=== PATIENT | female | born 1965 | race Caucasian/White ===

== ENCOUNTER 2017-08-04 09:07 | Outpatient (CLI) | payer OTHER ==
--- NOTE | 2017-08-04 11:56 | MMO ---
BILATERAL SCREENING MAMMOGRAM: DATE: 08/04/17 HISTORY: 52-year-old female for screening mammography. COMPARISON: 04/15/15, 03/27/13, 12/30/10. FINDINGS: Bilateral MLO and CC views of the breasts show scattered fibroglandular breast tissue. The breasts ar e smaller than the prior mammograms. There is increased density associated with dystrophic type calci fications in the inferior aspect of both breasts, likely secondary to the patient's prior reduction m ammoplasty/mastopexy. There is no evidence of suspicious cluster of microcalcifications or suspicious solid mass. Interpretation of this mammogram was performed with the assistance of computer-aided detection. IMPRESSION: BIRADS 2: Benign Finding(s) Annual screening mammography is recommended. POS: HO
== END 2017-08-04 09:08 | disposition home or self-care (01) ==
LOC: SCSMAMMO 09:07
PROVIDERS: ATTEND Family Medicine
DX: Z12.31 Encounter for screening mammogram for malignant neoplasm of breast (principal)
CPT/HCPCS: 77067

== ENCOUNTER 2017-12-01 06:16 | Day surgery (SDC) | payer OTHER ==
--- NOTE | 2017-11-30 08:32 | HP ---
HISTORY OF PRESENT ILLNESS: The patient is a 52-year-old inmate at the [facility] in [place] who has a several month history of problems with both hands, right greater than left. She has pain a nd tingling in the median nerve distribution which is persistent despite rest, restriction of activit ies, splinting and anti-inflammatory medications. She also has had triggering in both thumbs and als o her left middle finger which had persisted despite rest and conservative treatment. Her right hand bothers her the most. PAST MEDICAL HISTORY: The patient is otherwise in good health. CURRENT MEDICATIONS: Normally takes no routine medications. ALLERGIES: She has no known allergies. FAMILY HISTORY/SOCIAL HISTORY/REVIEW OF SYSTEMS: Otherwise unremarkable. PHYSICAL EXAMINATION: GENERAL: Reveals a healthy female. HEENT: Unremarkable. NECK: Supple. CHEST: Clear. HEART: Regular rate and rhythm. ABDOMEN: Soft, nontender. PELVIC/RECTAL/BREAST: Exams are deferred. EXTREMITIES: Pertinent findings are related to both hands and wrists. On the right side, there is n o swelling or atrophy. There is a negative Tinel sign and positive Phalen's test. No focal neurolog ic deficit. There is tenderness over the A1 jeremy of the right thumb with slight triggering. There are good distal pulses, good capillary refill. Examination of the left hand and wrist reveals no sw elling or atrophy. There is a negative Tinel sign and positive Phalen's test. There is no focal vivian rologic deficit. There is good capillary refill. Motor exam is intact. There is tenderness over th e A1 jeremy of the left thumb and left middle finger with slight triggering. Nerve conduction test r eveal moderately severe bilateral carpal tunnel syndrome. IMPRESSION: 1. Bilateral carpal tunnel syndrome, right greater than left. 2. Trigger thumb, right thumb. 3. Trigger thumb, left hand. 4. Trigger finger, left middle finger. PLAN: Endoscopic possible open right carpal tunnel release and open right trigger thumb release. Ijeoma dalton will require a staged procedure on the left side for trigger thumb release and carpal tunnel releas e when she has recovered from the right side. The nature of the surgery, length of recovery, and pot ential complications such as infection, loss of motion, incomplete relief, nerve injury, recurrence, and need for additional treatment or repeat surgery have been discussed in detail.
[2017-11-30 14:27] VITALS: BMI 30.3
[2017-12-01] MEDS ORDERED: Lidocaine 1% (PF) 30 ML VIAL ONE (06:46)
[2017-12-01] MEDS ORDERED: Bupivacaine PF 0.5% 30 ML VIAL ONE (06:46)
[2017-12-01] MEDS ORDERED: CEFAZOLIN/Water 2 GM/20 ML SYRINGE ONE (07:20)
[2017-12-01] MEDS ORDERED: Fentanyl 100 MCG/2 ML VIAL ONE ×2 (07:42→08:30)
[2017-12-01] MEDS ORDERED: Meperidine HCl/PF 25 MG/ML VIAL ONE (08:33)
--- NOTE | 2017-12-01 08:47 | OP ---
DATE OF PROCEDURE: 12/01/2017 SURGEON: George Alegria M.D. ANESTHESIA: General. PREOPERATIVE DIAGNOSES: 1. Right carpal tunnel syndrome. 2. Right trigger thumb. POSTOPERATIVE DIAGNOSES: 1. Right carpal tunnel syndrome. 2. Right trigger thumb. PROCEDURES PERFORMED: 1. Right endoscopic carpal tunnel release. 2. Right trigger thumb release. NARRATIVE REPORT: After satisfactory anesthesia was induced in the supine position, the patient was prepped and draped in routine manner. The right arm was elevated, exsanguinated with an Esmarch band age, and the tourniquet inflated to 250 mmHg. The thumb was addressed first. A 2 cm transverse inci guillermina was made over the base of the thumb over the palpable A1 jeremy, carried down to subcutaneous ti ssues, bleeding points controlled with Bovie cautery. Care was taken to avoid injury to the neurovas cular bundles, which were retracted throughout the procedure. Using sharp and blunt dissection, the flexor sheath of the thumb was identified and the A1 jeremy then divided in a proximal distal directi on with small scissors and a small segment of the jeremy excised to make sure there was complete divi guillermina. Following this, the flexor tendon could be pulled into the wound and there was full range of m otion of the thumb and no further triggering or catching. Attention was then directed to the wrist. A 2 cm transverse incision was made in the proximal wrist flexion crease, carried down to subcutaneo us tissues. Bleeding points controlled with Bovie cautery. Using sharp and blunt dissection, a dist ally based flap at deep forearm fascia was developed and retracted distally. Palmaris longus tendon was retracted radially. Proximal edge of the deep forearm fascia was split under direct visualizatio n with small scissors to make sure there was no proximal impingement of the median nerve. Synovium e levator was introduced beneath the transverse carpal ligament and the synovium cleaned from the under surface. Carpal tunnel dilators were inserted. The B2BrevE endoscopic carpal tunnel system was intr oduced beneath the transverse carpal ligament in line with the ring finger. The distal edge of the l igament was easily identified and then divided in a distal to proximal direction by pulling the judi er of the assembly, engaging the knife, and withdrawing the scope proximally. This was done in sever al stages to make sure there was complete division of the transverse carpal ligament, which was docum ented with the video printer. After withdrawing the scope, the carpal tunnel dilator could be insert ed into the carpal tunnel and there was markedly improved passage and subcutaneous position of the in strument. The scope was reintroduced into the carpal tunnel. There was wide separation of the two l eaves of the transverse carpal ligament. The tourniquet was released after 10 minutes. There was no excessive bleeding and the scope was withdrawn. Both wounds were then thoroughly irrigated. The th umb wound was closed with interrupted 3-0 nylon. The wrist wound was closed with running subcuticula r 3-0 nylon. Sterile dressings were applied. The patient immobilized in a Velcro wrist splint. She was awakened, taken to recovery room in stable condition. There were no apparent intraoperative com plications. The estimated blood loss was negligible. The patient will be discharged home in satisfactory condition. She was instructed on ice, elevation, and given written wound care instructions. She is given a prescription for [place] 5 for pain, 40 tab lets. She will be rechecked in my office in 8-9 days or sooner if there are any problems prior to th at time.
[2017-12-01] MEDS ORDERED: diphenhydrAMINE 50 MG/ML VIAL ONE (08:50)
[2017-12-01] MEDS ORDERED: HYDROcodone/Acetaminophen 5/325 mg Tablet ONE (10:47)
== END 2017-12-01 11:10 | disposition home or self-care (01) ==
LOC: SDC 06:16
PROVIDERS: ATTEND Orthopaedic Surgery
PROC: 01N54ZZ Release Median Nerve, Percutaneous Endoscopic Approach (ICD-10-PCS; principal; 2017-12-01)
PROC: 0LN70ZZ Release Right Hand Tendon, Open Approach (ICD-10-PCS; principal; 2017-12-01)
DX: G56.03 Carpal tunnel syndrome, bilateral upper limbs (principal); M65.312 Trigger thumb, left thumb; M65.311 Trigger thumb, right thumb
CPT/HCPCS: 96374; 96375; J1200; J2001; J2175; J3010; S0020

== ENCOUNTER 2018-04-20 05:42 | Day surgery (SDC) | payer OTHER ==
--- NOTE | 2018-04-19 09:39 | HP ---
HISTORY OF PRESENT ILLNESS: The patient is a 53-year-old female who has had problems with both hands with pain and tingling in median nerve distribution and also triggering in her right thumb, left thumb, and left middle finger. She had persistent symptoms despite conservative treatment. In November 2017, she underwent right carpal tunnel release and right trigger thumb release with good results. Continues to have symptoms in her left hand with pain, tingling in the median nerve distribution and triggering of her left thumb and middle finger. She is admitted at this time for surgical treatment of her left hand and wrist. PAST HISTORY: Please see the old chart. The patient is in otherwise good health. Normally takes no routine medications and has no known allergies. FAMILY HISTORY: Otherwise unremarkable. SOCIAL HISTORY: Otherwise unremarkable. REVIEW OF SYSTEMS: Otherwise unremarkable. The patient is currently inmate at [facility] in [place]. PHYSICAL EXAMINATION: GENERAL: Reveals a healthy female. HEENT: Unremarkable. NECK: Supple. CHEST: Clear. HEART: Regular rate and rhythm. ABDOMEN: Soft and nontender. PELVIC: Deferred. RECTAL: Deferred. BREASTS: Deferred. EXTREMITIES: Pertinent findings to the left hand and wrist. There is tenderness over the A1 jeremy of the middle finger and left thumb. There is triggering with range of motion. There is a positive Tinel sign and positive Phalen test. Motor exam appears to be intact. There is subjective numbness in median nerve distribution. DIAGNOSTIC DATA: Previous electrodiagnostic studies revealed [id number] bilateral carpal tunnel syndrome. IMPRESSION: 1. Left carpal tunnel syndrome. 2. Left trigger thumb. 3. Trigger finger, left middle finger. 4. Status post right carpal tunnel release. PLAN: Endoscopic possible open left carpal tunnel release and trigger thumb and middle finger trigger release, left hand. The nature of surgery, length of recovery, and potential complications such as infection, loss of motion, incomplete relieve, nerve injury, recurrence, and need for additional treatment and repeat surgery have been discussed in detail. Job ID: [id number]
[2018-04-20] MEDS ORDERED: CEFAZOLIN 2 GM/50 ML BAG ONE (06:27)
[2018-04-20] MEDS ORDERED: Bupivacaine PF 0.5% 30 ML VIAL ONE (06:59)
[2018-04-20] MEDS ORDERED: Lidocaine 1% (PF) 30 ML VIAL ONE (06:59)
[2018-04-20] MEDS ORDERED: Fentanyl 100 MCG/2 ML VIAL ONE ×3 (07:09→09:16)
[2018-04-20] MEDS ORDERED: Midazolam HCl 2 mg/2 ml Vial ONE (07:20)
[2018-04-20] MEDS ORDERED: HYDROcodone/Acetaminophen 5/325 mg Tablet ONE (11:55)
[2018-04-20] MEDS ORDERED: diphenhydrAMINE 50 MG/ML VIAL ONE (13:21)
[2018-04-20] MEDS ORDERED: PROPOFOL 200 MG/20 ML VIAL ONE (13:21)
[2018-04-20] MEDS ORDERED: Dexamethasone 20 MG/5 ML VIAL ONE (13:21)
[2018-04-20] MEDS ORDERED: Ketorolac Tromethamine 30 MG/ML VIAL ONE (13:21)
[2018-04-20] MEDS ORDERED: Lidocaine 1% PF 5 ML VIAL ONE (13:21)
--- NOTE | 2018-04-20 15:35 | OP ---
DATE OF PROCEDURE: 04/20/2018 ANESTHESIA: General. PREOPERATIVE DIAGNOSES: 1. Left carpal tunnel syndrome. 2. Left trigger thumb. 3. Left middle trigger finger. POSTOPERATIVE DIAGNOSES: 1. Left carpal tunnel syndrome. 2. Left trigger thumb. 3. Left middle trigger finger. PROCEDURES: 1. Left endoscopic carpal tunnel release. 2. Left trigger thumb release. 3. Left middle trigger finger release. DESCRIPTION OF PROCEDURE: After satisfactory anesthesia was induced in the supine position, the patient was prepped and draped in the routine manner. Left arm was elevated, exsanguinated with an Esmarch bandage and the tourniquet was inflated to 250 mmHg. The carpal tunnel was addressed first. A 2 cm transverse incision was made in the proximal wrist flexion crease, carried down to subcutaneous tissues. Bleeding points were controlled with Bovie cautery. Using sharp and blunt dissection, a distally based flap at the deep forearm fascia was developed and retracted distally. Palmaris longus tendon was retracted radially. Proximal edge of the deep forearm fascia was split under direct visualization with small scissors to make sure there was no proximal impingement of the median nerve. Synovial elevator was introduced beneath the transverse carpal ligament and the synovium cleaned from the undersurface. Carpal tunnel dilators were inserted. The [employer] endoscopic carpal tunnel system was introduced beneath the transverse carpal ligament along with the ring finger. The distal edge of the ligament was easily identified and divided in a distal to proximal direction by pulling the trigger of the assembly and engaging the knife from withdrawing the scope proximally. This was done in several stages to make sure there was complete division of the transverse carpal ligament, which was documented with video printer. After withdrawing the scope, the carpal tunnel dilator could be inserted into the carpal tunnel and there was markedly improved passage and subcutaneous position of the instrument. A 1.5 cm incision was made over the A1 jeremy at the base of the left thumb, carried down to subcutaneous tissues. Bleeding points were controlled with Bovie cautery. Digital neurovascular bundles were identified and retracted and protected. Using sharp and blunt dissection, the A1 jeremy was identified and then incised longitudinally from proximal to distal and a small segment of the jeremy removed. The flexor tendon can be pulled into the wound and there was full range of motion of thumb and no finger triggering. Attention was then directed to the middle finger and a 1.5 cm incision was made over the A1 jeremy of the left middle finger, carried down through subcutaneous tissue. Bleeding points were controlled with Bovie cautery. Digital neurovascular bundles were retracted. Using sharp and blunt dissection, the A1 jeremy was identified and then incised from proximal to distal with small scissors completely dividing the A1 jeremy and the small segment of jeremy was also excised. Flexor tendons can be pulled into the wound, and there was full range of motion of finger and no further triggering. All wounds were then thoroughly irrigated. The carpal tunnel incision was then closed with a running subcuticular 3-0 nylon. Two incisions were closed with interrupted 3-0 and 4-0 nylon. A sterile bulky compressive dressing was applied. The tourniquet deflated after 31 minutes. The hand promptly pinked up. The patient was placed into a Velcro wrist splint. She was awakened and taken to the recovery room in stable condition. There were no apparent intraoperative complications. Estimated blood loss was negligible. The patient will be discharged home in satisfactory condition with some ice, elevation. Given written care instructions. She was given prescription for [place] 5 for pain of 24 tablets. She will be rechecked in my office in approximately 2 weeks or sooner if there are any problems prior to that time. Job ID: [id number]
== END 2018-04-20 12:20 | disposition home or self-care (01) ==
LOC: SDC 05:42
PROVIDERS: ATTEND Orthopaedic Surgery
PROC: 01N54ZZ Release Median Nerve, Percutaneous Endoscopic Approach (ICD-10-PCS; principal; 2018-04-20)
PROC: 0LN80ZZ Release Left Hand Tendon, Open Approach (ICD-10-PCS; principal; 2018-04-20)
DX: G56.02 Carpal tunnel syndrome, left upper limb (principal); M65.312 Trigger thumb, left thumb; M65.332 Trigger finger, left middle finger
CPT/HCPCS: J0131; J1100; J1200; J1885; J2001; J2250; J2704; J3010; S0020